=== PATIENT | female | born 1965 | race Caucasian/White ===

== ENCOUNTER 2021-05-01 17:23 | Emergency (ER) | payer OTHER, SELFPAY ==
[~2021-05-01] VITALS: Ht 175.3 cm; Wt 87.5 kg
--- NOTE | 2021-05-01 17:25 | NUR ---
Placed in room 2 . Placed on phototypesetting equipment monitor, blood pressure machine and pulse oximeter. To gown for exam. Side rails up.
[2021-05-01 17:27] VITALS: BP_SYST 145
[2021-05-01] MEDS ORDERED: ASPIRIN 81 MG TAB.CHEW PO ONE (17:30)
--- NOTE | 2021-05-01 17:30 | NUR ---
Pt bib ACLS from [place] for chest pain/pressure 03/20. Pt was at [place] for blood draw and began to feel dizzy and had chest pain. EKG in route showed NSR, pt was given 0.4 nitro and 325mg ASA by EMS, no relief. V/S upon arrival WNL, no acute distress noted.
[2021-05-01] MEDS ORDERED: PRO40 PO (17:41)
[2021-05-01] MEDS ORDERED: PROP10TA10 PO (17:41)
--- NOTE | 2021-05-01 17:41 | NUR ---
Med reconcilliation completed
--- NOTE | 2021-05-01 17:43 | NUR ---
Lab at bedside for blood draw.
[2021-05-01 17:48] LABS: BASOPHILS # (AUTO) 0.1 K/uL (0.0-0.2); EOSINOPHILS # (AUTO) 0.4 K/uL (0.0-0.4); EOSINOPHILS % (AUTO) 5.5 % (0.0-4.0); HEMATOCRIT 39.1 % (36-48); HEMOGLOBIN 12.8 g/dL (12.0-16.0); LYMPHOCYTES % (AUTO) 29.6 % (20.5-51.5); MEAN CORPUSCULAR HEMOGLOBIN 26 pg (27-31); MEAN CORPUSCULAR HGB CONC 33 % (32-36); MEAN CORPUSCULAR VOLUME 80 fL (79.0-98.0); MONOCYTES # (AUTO) 0.6 K/uL (0.0-1.0); MONOCYTES % (AUTO) 9.4 % (1.7-9.3); NEUTROPHILS # (AUTO) 3.6 K/uL (1.8-7.7); NEUTROPHILS % (AUTO) 53.5 % (40.0-70.0); PLATELET COUNT (AUTO) 182 K/uL (130-430); RED BLOOD CELL COUNT(AUTO) 4.88 MIL/uL (4.2-6.2); RED CELL DISTRIBUTION WIDTH 25.2 % (9.0-15.0); WHITE BLOOD COUNT (AUTO) 6.7 K/uL (4.8-10.8)
[2021-05-01 18:05] VITALS: BP_SYST 132
[2021-05-01 18:05] LABS: CALCIUM 9.1 mg/dL (8.4-11.0); CREATININE 0.68 mg/dL (0.55-1.30); POTASSIUM 3.7 mmol/L (3.5-5.1)
--- NOTE | 2021-05-01 18:15 | NUR ---
ER Dr. Howard at bedside examining patient.
[2021-05-01 18:19] LABS: ALBUMIN 3.4 g/dL (3.4-4.8); TOTAL BILIRUBIN 0.2 mg/dL (0.0-1.0)
--- NOTE | 2021-05-01 18:49 | NUR ---
Patient does not wish to proceed with medical care recommended by Dr Howard . Patient given information related to possible complications, up to and including , which could occur as a result of leaving hospital at this time. Patient verbalizes understanding of risks involved leaving against medical advice. Patient has signed AMA form.
== END 2021-05-01 18:49 | disposition left against medical advice (07) ==
LOC: SED 17:23
DX: R07.89 Other chest pain (principal); R06.02 Shortness of breath; F17.210 Nicotine dependence, cigarettes, uncomplicated; Z88.1 Allergy status to other antibiotic agents; Z88.5 Allergy status to narcotic agent; Z88.6 Allergy status to analgesic agent; Z79.899 Other long term (current) drug therapy; Z71.6 Tobacco abuse counseling; Z20.822 Contact with and (suspected) exposure to COVID-19
CPT/HCPCS: 36415; 71045; 80053; 83880; 84484; 85025; 85379; 93005; 99285